=== PATIENT | female | born 1990 | race Caucasian/White ===

== ENCOUNTER 2017-12-09 14:13 | Emergency (ER) | payer OTHER ==
[2017-12-09 14:45] VITALS: BP 144/84; PULSE 95; RESP 18; TEMP 99.1; O2SAT 99
[2017-12-09 16:30] VITALS: BP 128/82; PULSE 77; RESP 20; TEMP 99; O2SAT 99
--- NOTE | 2017-12-09 16:56 | PD ---
HPI Chief Complaint: Psychiatric Symptoms Time Seen by Provider: 16:34 Travel History International Travel<30 days: No Contact w/Intl Traveler<30days: No Traveled to known affect area: No History of Present Illness HPI 27-year-old female presents emergency department voluntarily with suicidal ideation and reports of chronic alcohol abuse. Patient denies any acute medical problems at this time. Patient is requesting help with alcohol abuse issues, and her depression and suicidal thoughts. She states she has never had a seizure from her EtOH abuse, but does get the shakes. She drinks daily. She has no known drug allergies. PFSH Past Medical History ?: Not Social History Alcohol Use: Yes Tobacco Use: No Substance Use: No Allergies-Medications (Allergen,Severity, Reaction): Coded Allergies: No Known Allergies (Unverified , 12/09/17) Reported Meds & Prescriptions Reported Meds & Active Scripts Active No Active Prescriptions or Reported Medications Review of Systems Except as stated in HPI: all other systems reviewed are Neg General / Constitutional: No: Fever Eyes: No: Visual changes HENT: No: Headaches Cardiovascular: No: Chest Pain or Discomfort Respiratory: No: Shortness of Breath Gastrointestinal: No: Abdominal Pain Genitourinary: No: Dysuria Musculoskeletal: No: Pain Skin: No Rash Neurologic: No: Weakness Psychiatric: Positive: Depression, Suicidal Ideations, Substance Abuse, No: Homicidal Ideation Endocrine: No: Polydipsia Hematologic/Lymphatic: No: Easy Bruising Physical Exam Narrative GENERAL: Patient appears anxious but otherwise in no acute distress SKIN: Warm and dry. Normal color. Normal turgor HEAD: Atraumatic. Normocephalic. EYES: Pupils equal and round. No scleral icterus. No injection or drainage. ENT: No nasal bleeding or discharge. Mucous membranes pink and moist. Pharynx is clear. Airways patent NECK: Trachea midline. Supple and nontender. CARDIOVASCULAR: Regular rate and rhythm. RESPIRATORY: No accessory muscle use. Clear to auscultation. Breath sounds equal bilaterally. GASTROINTESTINAL: Abdomen soft, non-tender, nondistended. Hepatic and splenic margins not palpable. MUSCULOSKELETAL: Extremities without clubbing, cyanosis, or edema. No obvious deformities. NEUROLOGICAL: Awake and alert. No obvious cranial nerve deficits. Motor grossly within normal limits. Five out of 5 muscle strength in the arms and legs. Normal speech. PSYCHIATRIC: Appropriate mood and affect; insight and judgment normal. Data Data Last Documented VS Vital Signs Date Time Temp Pulse Resp B/P (MAP) Pulse Ox O2 Delivery O2 Flow Rate FiO2 12/09/17 16:30 99.0 77 20 128/82 (97) 99 Room Air Orders Orders Complete Blood Count With Diff (12/09/17 14:47) Thyroid Stimulating Hormone (12/09/17 14:47) Basic Metabolic Panel (Bmp) (12/09/17 14:47) Urinalysis - C+S If Indicated (12/09/17 14:47) Ed Urine Pregnancytest Poc (12/09/17 14:47) Psych Screen (12/09/17 14:47) Drug Screen, Random Urine (12/09/17 14:47) Alcohol (Ethanol) (12/09/17 14:47) Diet Regular Basic (12/09/17 Dinner) MDM Medical Decision Making Medical Screen Exam Complete: Yes Emergency Medical Condition: Yes Differential Diagnosis Depression. Suicidal ideation. EtOH abuse Narrative Course Patient appears medically stable at time of exam. Psychiatric labs ordered per protocol including urine . Patient is placed on the CINE protocol. Patient medically clear for psychiatric evaluation. Psych eval ordered. Scripts No Active Prescriptions or Reported Meds Condition: Stable Wolfgang Cain Dec 09, 2017 16:56
[2017-12-09] MEDS ORDERED: LORazepam 2 MG/ML VIAL IV PUSH PRN ×4 (17:00)
[2017-12-09] MEDS ORDERED: LORazepam 2 MG TAB PO PRN (17:00)
[2017-12-09] MEDS ORDERED: FLUMAZENIL 0.5 MG/5 ML VIAL IV PUSH PRN (17:00)
[2017-12-09] MEDS ORDERED: LORazepam 1 MG TAB PO PRN (17:00)
[2017-12-09 17:10] LABS: AUTOMATED NEUTROPHIL # 7.5 TH/MM3 (1.8-7.7); BASOPHIL # 0.1 TH/MM3 (0-0.2); BASOPHIL % 0.6 % (0.0-2.0); EOSINOPHIL # 0.1 TH/MM3 (0-0.4); EOSINOPHIL % 0.7 % (0.0-4.0); HEMATOCRIT 44.3 % (35.0-46.0); HEMOGLOBIN 15.6 GM/DL (11.6-15.3); LYMPH % 20.3 % (9.0-44.0); MEAN CELL VOLUME 97.6 FL (80.0-100.0); MEAN CORPUSCULAR HEMOGLOBIN 34.5 PG (27.0-34.0); MEAN CORPUSCULAR HGB CONC 35.3 % (32.0-36.0); MONO % 3.9 % (0.0-8.0); MONOCYTE # 0.4 TH/MM3 (0-0.9); NEUT % 74.5 % (16.0-70.0); PLATELET COUNT 268 TH/MM3 (150-450); RED BLOOD COUNT 4.53 MIL/MM3 (4.00-5.30); RED CELL DISTRIBUTION WIDTH 12.1 % (11.6-17.2); WHITE BLOOD COUNT 10.1 TH/MM3 (4.0-11.0)
[2017-12-09 17:23] LABS: BILIRUBIN, URINE NEG (NEG); BLOOD, URINE NEG (NEG); GLUCOSE,URINE NEG (NEG); KETONE, URINE NEG (NEG); NITRITE,URINE NEG (NEG); PH, URINE 6.5 (5.0-8.5); SQUAMOUS EPITHELIAL CELL URINE 4 /hpf (0-5); URINE COLOR LIGHT-YELLOW (YELLW/STRAW); URINE LEUKOCYTE ESTERASE NEG (NEG)
[2017-12-09 17:32] LABS: BLOOD UREA NITROGEN 8 MG/DL (7-18); CALCIUM 9.4 MG/DL (8.5-10.1); CHLORIDE 103 MEQ/L (98-107); CREATININE 0.68 MG/DL (0.50-1.00); GLOMERULAR FILTRATION RATE 104 ML/MIN (>89); GLUCOSE,RANDOM 83 MG/DL (74-106); SODIUM (NA) 140 MEQ/L (136-145)
[2017-12-09 19:14] VITALS: BP 125/75; PULSE 64; RESP 18; O2SAT 99
--- NOTE | 2017-12-09 21:06 | PD ---
Data Data Last Documented VS Vital Signs Date Time Temp Pulse Resp B/P (MAP) Pulse Ox O2 Delivery O2 Flow Rate FiO2 12/09/17 19:14 64 18 125/75 (92) 99 Room Air 12/09/17 16:30 99.0 Orders Orders Complete Blood Count With Diff (12/09/17 14:47) Thyroid Stimulating Hormone (12/09/17 14:47) Basic Metabolic Panel (Bmp) (12/09/17 14:47) Urinalysis - C+S If Indicated (12/09/17 14:47) Ed Urine Pregnancytest Poc (12/09/17 14:47) Psych Screen (12/09/17 14:47) Drug Screen, Random Urine (12/09/17 14:47) Alcohol (Ethanol) (12/09/17 14:47) Diet Regular Basic (12/09/17 Dinner) Alcohol Withdrawal Asmt-Ciwa [id number] (12/09/17 16:56) Flumazenil Inj (Romazicon Inj) (12/09/17 17:00) Lorazepam (Ativan) (12/09/17 17:00) Lorazepam Inj (Ativan Inj) (12/09/17 17:00) Lorazepam (Ativan) (12/09/17 17:00) Lorazepam Inj (Ativan Inj) (12/09/17 17:00) Lorazepam Inj (Ativan Inj) (12/09/17 17:00) Lorazepam Inj (Ativan Inj) (12/09/17 17:00) Labs Laboratory Tests Test 12/09/17 16:10 White Blood Count 10.1 TH/MM3 Red Blood Count 4.53 MIL/MM3 Hemoglobin 15.6 GM/DL Hematocrit 44.3 % Mean Corpuscular Volume 97.6 FL Mean Corpuscular Hemoglobin 34.5 PG Mean Corpuscular Hemoglobin Concent 35.3 % Red Cell Distribution Width 12.1 % Platelet Count 268 TH/MM3 Mean Platelet Volume 8.0 FL Neutrophils (%) (Auto) 74.5 % Lymphocytes (%) (Auto) 20.3 % Monocytes (%) (Auto) 3.9 % Eosinophils (%) (Auto) 0.7 % Basophils (%) (Auto) 0.6 % Neutrophils # (Auto) 7.5 TH/MM3 Lymphocytes # (Auto) 2.0 TH/MM3 Monocytes # (Auto) 0.4 TH/MM3 Eosinophils # (Auto) 0.1 TH/MM3 Basophils # (Auto) 0.1 TH/MM3 CBC Comment DIFF FINAL Differential Comment Urine Color LIGHT-YELLOW Urine Turbidity CLEAR Urine pH 6.5 Urine Specific [place] 1.006 Urine Protein NEG mg/dL Urine Glucose (UA) NEG mg/dL Urine Ketones NEG mg/dL Urine Occult Blood NEG Urine Nitrite NEG Urine Bilirubin NEG Urine Urobilinogen LESS THAN 2.0 MG/DL Urine Leukocyte Esterase NEG Urine WBC LESS THAN 1 /hpf Urine Squamous Epithelial Cells 4 /hpf Microscopic Urinalysis Comment CULT NOT INDICATED Blood Urea Nitrogen 8 MG/DL Creatinine 0.68 MG/DL Random Glucose 83 MG/DL Calcium Level 9.4 MG/DL Sodium Level 140 MEQ/L Potassium Level 3.8 MEQ/L Chloride Level 103 MEQ/L Carbon Dioxide Level 26.0 MEQ/L Anion Gap 11 MEQ/L Estimat Glomerular Filtration Rate 104 ML/MIN Thyroid Stimulating Hormone 3rd Gen 2.270 uIU/ML Urine Opiates Screen NEG Urine Barbiturates Screen NEG Urine Amphetamines Screen NEG Urine Benzodiazepines Screen NEG Urine Cocaine Screen NEG Urine Cannabinoids Screen POS Ethyl Alcohol Level LESS THAN 3 MG/DL MDM Medical Record Reviewed: Yes Supervised Visit with LUIZ: No Narrative Course This patient has been cleared by psychiatry. She has no medical issues that would warrant further hospitalization. She has a bed at a sober living house and she is going directly there. She seeks to quit drinking. She has no suicidal or homicidal thoughts. She is stable for discharge. Diagnosis Primary Impression: Alcohol abuse Patient Instructions: General Instructions Departure Forms: Tests/Procedures Additional Instruction: A LIST OF COMMUNITY RESOURCES PROVIDED. PLEASE FOLLOW UP WITH A DETOX FACILITY OF YOUR CHOICE.. MAY RETURN TO THE EMERGENCY DEPT IF YOUR PROBLEMS GET WORSE. Scripts No Active Prescriptions or Reported Meds Disposition: 01 DISCHARGE HOME Condition: Stable Leno Butler Dec 09, 2017 21:06
== END 2017-12-09 21:51 | disposition home or self-care (01) ==
LOC: NED 14:13 → NEPJ 21:51
DX: F10.10 Alcohol abuse, uncomplicated (principal); Y90.0 Blood alcohol level of less than 20 mg/100 ml
CPT/HCPCS: 80048; 80307; 81001; 84443; 84703; 85025; 99283